=== PATIENT | female | born 1955 | race Caucasian/White ===

== ENCOUNTER 2019-05-12 15:41 | Inpatient (IN) ==
[2019-05-12] MEDS ORDERED: NS 1,000 ML IV PRN (16:12)
--- NOTE | 2019-05-12 16:27 | Diag Imaging Result Doc PS360 ---
CT HEAD W/O CONTRAST - 05/12/2019 INDICATION: R/O STROKE COMPARISON: None FINDINGS: There is mild cerebral atrophy. There is mild periventricular white matter chronic microvascular disease. There are old lacunae in the basal ganglia bilaterally. No intracranial mass or hemorrhage. The skull is intact. The sinuses are clear. IMPRESSION: Chronic ischemic changes of the brain. No acute process. This exam was performed using automated exposure control, adjustment of mA or kV according to patient size, and/or use of iterative reconstruction technique Electronically signed by Ruddy Anguiano 05/12/2019 4:25 PM
--- NOTE | 2019-05-12 16:35 | Diag Imaging Result Doc PS360 ---
CHEST-PORTABLE - 05/12/2019 INDICATION: stroke like symptoms COMPARISON: None FINDINGS: The lungs are normally expanded and clear. Heart size and mediastinal contours are normal. No pneumothorax or pleural effusion. IMPRESSION: Negative exam. Electronically signed by Ruddy Anguiano 05/12/2019 4:33 PM
[2019-05-12 16:38] LABS: BASO# 0.03 X1000 (0.0-0.2); BASO% 0.5 % (0.0-0.8); EOS# 0.09 X1000 (0.0-0.7); EOS% 1.4 % (0.0-10.0); HEMOGLOBIN 14.7 g/dL (12.0-16.0); IMM GRAN# 0.02 X1000 (0.0-0.04); IMM GRAN% 0.3 % (0.0-0.5); LYMPH# 1.35 X1000 (1.2-3.4); LYMPH% 20.8 % (20.5-51.1); MCH 29.3 PG (27-31); MCHC 32.7 g/dL (33-37); MCV 89.6 FL (81-99); MONO# 0.41 X1000 (0.11-0.59); MONO% 6.3 % (1.7-9.3); MPV 10.9 FL (7.4-10.4); NEUT# 4.58 X1000 (1.4-6.5); NEUT% 70.7 % (42.2-75.2); PLT 177 X1000 (130-400); RBC 5.02 XMIL (4.2-5.4); RDW 13.9 % (11.5-14.5); WBC 6.48 X1000 (4.8-10.8)
[2019-05-12 16:47] LABS: INR 0.97
[2019-05-12 16:48] LABS: PTT 25.4 Seconds (22.3-41.8)
[2019-05-12 16:57] LABS: AGAP 14; ALB/GLOB RATIO 1.5; ALBUMIN 4.1 g/dL (3.5-5.0); ALKALINE PHOSPHATASE 121 U/L (32-104); BUN 11 mg/dL (8-22); CALCIUM 9.2 mg/dL (8.8-10.2); CHLORIDE 103 mmol/L (98-107); COSMO 281; CREATININE 0.7 mg/dL (0.5-0.9); ESTIMATED GFR > 60; GLUCOSE 106 mg/dL (70-104); GOT 15 U/L (10-30); GPT 8 U/L (10-36); POTASSIUM 4.1 mmol/L (3.5-5.1); SODIUM 141 mmol/L (136-145); TCO2 24 mmol/L (25-35); TOTAL BILIRUBIN 0.22 mg/dL (0.20-1.00); TOTAL PROTEIN 6.8 g/dL (6.3-8.3)
[2019-05-12 17:29] LABS: URINE SOURCE CLEAN CATCH
[2019-05-12 17:35] LABS: BILIRUBIN URINE NEGATIVE (NEGATIVE); BLOOD URINE NEGATIVE (NEGATIVE); COLOR YELLOW; GLUCOSE URINE NEGATIVE (NEGATIVE); KETONE URINE NEGATIVE (NEGATIVE); LEUKOCYTES URINE NEGATIVE (NEGATIVE); NITRITE URINE NEGATIVE (NEGATIVE); PH URINE 7.5; PROTEIN URINE TRACE mg/dL (NEGATIVE); SP GRAVITY URINE 1.016; TURBIDITY URINE CLEAR (CLEAR); UROBILINOGEN URINE NORMAL (NORMAL)
[2019-05-12 17:36] LABS: UR EPITHELIAL CELLS <10 /HPF (<10); URINE BACTERIA NEGATIVE /HPF; URINE RBC <10 /HPF (<10); URINE WBC <10 /HPF (<10)
[2019-05-12 17:52] LABS: UR AMPHETAMINES QUAL PRESUMPTIVE POSITIVE (NONE DETECT); UR BARBITUATES QUAL NONE DETECTED (NONE DETECT); UR BENZODIAZEPIN QUAL NONE DETECTED (NONE DETECT); UR CANNABINOIDS QUAL NONE DETECTED (NONE DETECT); UR COCAINE QUAL NONE DETECTED (NONE DETECT); UR METHADONE QUAL NONE DETECTED (NONE DETECT); UR OPIATES QUAL NONE DETECTED (NONE DETECT); UR OXYCODONE QUAL NONE DETECTED (NONE DETECT); UR PCP QUAL NONE DETECTED (NONE DETECT)
[2019-05-12] MEDS ORDERED: ASPIRIN PO ONE (18:03)
--- NOTE | 2019-05-12 18:03 | PROVIDER DOCUMENTATION ---
This chart was entered by Allie Nolasco Scribe, acting as scribe for David Jenkins MD. HPI-Neurological Disorder - General Chief Complaint: STROKE ALERT Stated Complaint: STROKE ALERT Time Seen by Provider: 05/12/19 15:52 Source: patient, EMS ([facility]) Unable to obtain history due to:: urgency - History of Present Illness-Neuro Nature of Presenting Problem: unknown aged female presents to the ed via ems ([facility]) after found on [address] slummed over in her car. per ems when aos pt was unresponsive briefly but once she became responsive was able to speak and answer questions. while ems was speaking with the pt again she deve;oped onset of left facial droop, blurry vision, slurred speech and weakness noted to ADAN. pt was in the ed went to [place] and has been improving since coming to ed. she reports she has hx of TIA's in the past. ems reports D stick 109 and they spoke with pt sister enroute to ed. pt denies pain Severity: reports: moderate Onset/Duration: reports: 1 hour ago Timing: reports: still present, improving Context: reports: impaired speech, facial droop Character of Altered Mental Status: reports: disoriented, unresponsive Any recent trauma/injury?: reports: none Character of Deficits: reports: vision problem/glaucoma, impaired speech New weakness or altered sensation location:: reports: LUE, left facial Cognitive Baseline: alert, oriented x3 Gait Baseline: walks without assistance Associated Symptoms: reports: confusion, loss of consciousness, sleepy, slurred speech, vision changes, weakness. denies: headache, chest pain, fever/chills, numbness in legs/feet, vomiting Similar Symptoms Previously?: Yes (hx of TIA) Recently seen or treated by another doctor?: No Review of Systems - Adult - REVIEW OF SYSTEMS - ADULT ROS:: limited per condition Constitutional: denies: chills, fever Eyes: reports: see HPI, blurred vision Ears, Nose, Mouth & Throat: reports: no symptoms reported Cardiovascular: denies: chest pain, palpitations Respiratory: denies: shortness of breath, wheezing Gastrointestinal: denies: diarrhea, nausea, vomiting Genitourinary: reports: no symptoms reported Musculoskeletal: reports: see HPI, muscle weakness (LUE). denies: back pain, neck pain Integumentary: reports: no symptoms reported Neurological: reports: see HPI, slurred speech. denies: headache/migraines, seizure, tremors Psychiatric: reports: no symptoms reported Endocrine: reports: no symptoms reported Hematologic/Lymphatic: reports: no symptoms reported Allergic/Immunologic: reports: no symptoms reported All Other Systems: Reviewed and Negative Past History - Adult - PAST MEDICAL HISTORY-ADULT Review of Records: reports: Old Records Reviewed, Nursing Assessment Review, Medications Reviewed, Social history reviewed & non-contributory. Major Childhood Illnesses: reports: denies history Cardiovascular: reports: HTN Respiratory: reports: denies history Gastrointestinal: reports: denies history Obstetrical/Gynecological: reports: denies history Genitourinary: reports: denies history Musculoskeletal: reports: denies history Hand Dominance: Right Handed Neurological: reports: TIA Psychiatric: reports: anxiety Endocrine/Immune: reports: denies history Other Conditions: reports: denies history - PRIOR SURGERIES/PROCEDURES Surgical/Procedure History: reports: reviewed, not pertinent - IMMUNIZATION STATUS Childhood Immunizations: See Nurse Assessment Flu Vaccine: See Nurse Assessment - FAMILY HISTORY Family History: reviewed, not pertinent - SOCIAL HISTORY Smoking: denies Substance Use: denies Living Situation: family Physical Exam- Neurological - Physical Exam-Neuro Initial Vital Signs Reviewed: Yes General Appearance: appears well, alert, mild distress Eye Exam: bilateral eye: normal inspection, PERRL, other (unable to direct gaze to the right) HENMT: negative: moist mucous membranes (dry oral) Head Injury: no evidence of injury Neck: non-tender, full range of motion, normal inspection Respiratory: chest non-tender, lungs clear, normal breath sounds Cardiovascular: normal peripheral pulses, regular rate, rhythm Abdominal Exam: normal bowel sounds, non tender, soft Lymphatic: no adenopathy Extremity: normal capillary refill, pelvis stable customer solutions coordinator Exam: PERRL, abnormal speech, facial droop, gaze palsy Motor/Sensory: pronator drift (L), weak motor strength LUE Neurologic: aphasia, facial droop, motor weakness Integumentary: normal color, normal turgor, warm/dry Psych/Mental Status: oriented x 3 Progress - PLAN OF CARE/RESULTS Progress/Plan/Lab Results: Vital Signs - 8 hr 05/12/19 16:19 05/12/19 16:26 Temperature 97.6 F Pulse Rate 93 H Respiratory Rate 16 Blood Pressure 189/94 O2 Sat by Pulse Oximetry 100 Laboratory Results - last 24 hr 05/12/19 05/12/19 05/12/19 16:20 16:20 16:20 WBC 6.48 RBC 5.02 Hgb 14.7 Hct 45.0 MCV 89.6 MCH 29.3 MCHC 32.7 L RDW Std Deviation 13.9 Plt Count 177 MPV 10.9 H Immature Gran % (Auto) 0.3 Neut % (Auto) 70.7 Lymph % (Auto) 20.8 [place] % (Auto) 6.3 Eos % (Auto) 1.4 Baso % (Auto) 0.5 Immature Gran # (Auto) 0.02 Neut # (Auto) 4.58 Lymph # (Auto) 1.35 [place] # (Auto) 0.41 Eos # (Auto) 0.09 Baso # (Auto) 0.03 PT INR PTT (Actin FS) Sodium 141 Potassium 4.1 Chloride 103 Carbon Dioxide 24 L Anion Gap 14 BUN 11 Creatinine 0.7 Estimated GFR/1.73 m2 > 60 BUN/Creatinine Ratio 16 Glucose 106 H Calculated Osmolality 281 Calcium 9.2 Total Bilirubin 0.22 AST 15 ALT 8 L Alkaline Phosphatase 121 H Troponin T High Sens < 6 Total Protein 6.8 Albumin 4.1 Globulin 2.7 Albumin/Globulin Ratio 1.5 Urine Source Urine Color Urine Turbidity Urine pH Ur Specific [place] Urine Protein Ur Glucose (Stick) Ur Ketones (Stick) Urine Blood Urine Nitrite Urine Bilirubin Urobilinogen Dipstick Urine Leukocytes Urine WBC (Auto) Urine RBC (Auto) U Epithel Cells (Auto) Urine Bacteria (Auto) Urine Opiates Screen Ur Oxycodone Screen Ur Methadone, Qual Ur Barbiturates Screen Ur Phencyclidine Scrn Ur Amphetamines Screen U Benzodiazepines Scrn Urine Cocaine Screen U Cannabinoids Screen 05/12/19 05/12/19 05/12/19 16:20 17:03 17:03 WBC RBC Hgb Hct MCV MCH MCHC RDW Std Deviation Plt Count MPV Immature Gran % (Auto) Neut % (Auto) Lymph % (Auto) [place] % (Auto) Eos % (Auto) Baso % (Auto) Immature Gran # (Auto) Neut # (Auto) Lymph # (Auto) [place] # (Auto) Eos # (Auto) Baso # (Auto) PT 13.0 INR 0.97 PTT (Actin FS) 25.4 Sodium Potassium Chloride Carbon Dioxide Anion Gap BUN Creatinine Estimated GFR/1.73 m2 BUN/Creatinine Ratio Glucose Calculated Osmolality Calcium Total Bilirubin AST ALT Alkaline Phosphatase Troponin T High Sens Total Protein Albumin Globulin Albumin/Globulin Ratio Urine Source CLEAN CATCH Urine Color YELLOW Urine Turbidity CLEAR Urine pH 7.5 Ur Specific [place] 1.016 Urine Protein TRACE A Ur Glucose (Stick) NEGATIVE Ur Ketones (Stick) NEGATIVE Urine Blood NEGATIVE Urine Nitrite NEGATIVE Urine Bilirubin NEGATIVE Urobilinogen Dipstick NORMAL Urine Leukocytes NEGATIVE Urine WBC (Auto) <10 Urine RBC (Auto) <10 U Epithel Cells (Auto) <10 Urine Bacteria (Auto) NEGATIVE Urine Opiates Screen NONE DETECTED Ur Oxycodone Screen NONE DETECTED Ur Methadone, Qual NONE DETECTED Ur Barbiturates Screen NONE DETECTED Ur Phencyclidine Scrn NONE DETECTED Ur Amphetamines Screen PRESUMPTIVE POSITIVE A U Benzodiazepines Scrn NONE DETECTED Urine Cocaine Screen NONE DETECTED U Cannabinoids Screen NONE DETECTED Orders Category Date Time Status Cardiac Monitoring DIRECTED Care 05/12/19 16:12 Active Finger Stick Blood Sugar (ED) DIRECTED Care 05/12/19 16:12 Active Misc. NRSG Communication Order DIRECTED Care 05/12/19 16:12 Active Oxygen Therapy- ED Nursing DIRECTED Care 05/12/19 16:12 Active Saline Loc NOW Care 05/12/19 16:12 Active CHEST-PORTABLE [RAD] Stat Exams 05/12/19 16:[address] HEAD W/O CONTRAST [CT] Stat Exams 05/12/19 15:39 Completed CBC WITH ELECTRONIC DIFF [HEME] Stat Lab 05/12/19 16:20 Completed COMPREHENSIVE METABOLIC PANEL [CHEM] Stat Lab 05/12/19 16:20 Completed PROTIME WITH INR [COAG] Stat Lab 05/12/19 16:20 Completed PTT [COAG] Stat Lab 05/12/19 16:20 Completed TROPONIN T HIGH SENSITIVITY Stat Lab 05/12/19 16:20 Completed URINALYSIS W/POSS RFLX CULT [URINALYSIS] Stat Lab 05/12/19 17:03 Completed URINE DRUG SCREEN Stat Lab 05/12/19 17:03 Completed 0.9% Sodium Chloride Inj [Ns] 1,000 ml Med 05/12/19 16:12 Ordered IV 125 mls/hr EKG [EKG] Stat Ther 05/12/19 16:12 Ordered Result Diagrams: 05/12/19 16:20 05/12/19 16:20 - REASSESSMENT Reassessment #1 Time Reassessed: 16:29 Status: unchanged (dr jenkins at bedside pt is unchanged) Reassessment #2 Time Reassessed: 17:26 Status: unchanged (dr jenkins at bedside she still has left sided facial droop and cant see well out left eye) - EKG 1 Time of EKG reading by physician:: 16:34 EKG Read and Signed by:: David Jenkins EKG Interpretation (*Must complete 3 of following elements*): Abnormal Rate: 92 Rhythm: nsr QRS: other (biatrial enlargement/prolonged QT/abnormal QRS-T angle, consider primary T wave abnormality) - XRAY 1 XRAY: Bilateral XRAY Study: Chest Impression: See EMR Report (MPRESSION: Negative exam. Electronically signed by Ruddy Anguiano 05/12/2019 4:33 PM) - CT/MRI 1 CT Study: Head Impression: See EMR Report (IMPRESSION: Chronic ischemic changes of the brain. No acute process. This exam was performed using automated exposure control, adjustment of mA or kV according to patient size, and/or use of iterative reconstruction technique Electronically signed by Ruddy Anguiano 05/12/2019 4:25 PM) - CONSULTS/PCP/HOSPITALIST Notification #1 *Consult/PCP/Hospitalist*: hospitalist dr harding Time Discussed: 17:30 Reason/Comments: phone consult Consult Disposition: Will see in ED, Admit #2 Consult: transfer center Time Discussed: 17:32 (push images and want to telescreen pt for cva) Reason/Comments: phone consult #3 Consult: Dr Nuñez (Neuro) Time Discussed: 18:02 Reason/Comments: advised to keep here and no TPA Consult Disposition: Admit Departure - Departure Date of Disposition Decision: 05/12/19 Time of Disposition Decision: 18:02 DIAGNOSIS: CVA (cerebral vascular accident), HTN (hypertension) Disposition: ADMITTED INPATIENT 09 Certified Medical Emergency: Emergent Condition: Fair Referrals and Follow-Ups: None,PCP [Primary Care Provider] - - Critical Care Note This patient required my direct & personal management of CC.: Yes Total Time (mins): 35 Critical Care Statement: This patient required my direct personal management to treat or rule out processes, the absence of which, could potentiallly result in sudden, clinically significant life or limb threatening deterioration. Attestation - Physician/ ROEL Attestation Patient care was provided by Advanced Practice Provider:: No The physician spent face to face time with patient:: Yes Advanced Practice Provider documentation review:: Supervising physician onsite and consulted in the evaluation and care of this patient. The physician did have a face to face encounter with the patient. - NIH Stroke Scale NIH Type: Initial Evaluation Level of Consciousness: 0-Alert LOC Questions (ask month and age): 0-Answers Both Correctly LOC Commands (ask to open & close eyes;make a fist, let go): 0-Obeys Both Correctly Best Gaze (horizontal eye movement): 1-Partial Gaze Palsy (gaze is abnormal in one or both eyes) Visual (use finger movement, counting or visual threat): 1-Partial Hemianopia Facial Palsy (show teeth or raise eyebrows & close eyes tght: 1-Minor Paralysis Motor Function-left arm: 1-Drift Motor Function-right arm: 0-Normal Motor Function-left le-Normal Motor Function-right le-Normal Limb Ataxia([id number], or heel to colindres): 0-No Ataxia Sensory(pin prick to face,arms,trunk,legs-compare side/side): 0-No Ataxia Best Language(name item/read sentence.Ex-Down to Earth): 1-Mild to Moderate Aphasia Dysarthria(Pt read words or say words Ex.Mama,Tip-Top,Thanks: 1-Mild-Mod Slurring Words NIH Total Score: 6 This chart was documented by the indicated scribe, (Allie Nolasco Scribe) and accurately reflects the services I performed and decisions made by me, David Jenkins MD, as attested by the provider's signature.
[2019-05-12] MEDS ORDERED: TYLENOL PO PRN (19:04)
[2019-05-12] MEDS ORDERED: LABETALOL IV PRN ×2 (19:04→23:30)
[2019-05-12] MEDS ORDERED: ZOFRAN IV PRN (19:04)
--- NOTE | 2019-05-12 19:11 | HISTORY AND PHYSICAL ---
CHIEF COMPLAINT: Weakness and facial drooping. HISTORY OF PRESENT ILLNESS: This is a 63-year-old female. She does have a history of hypertension and TIA previously. She was evaluated in the ER. Around 2:30, apparently she had an episode where she felt weak and dizzy. She pulled off to the side of the road. Emergency responders came in and it was felt that she possibly had a stroke, so she was brought in because she had left facial weakness and left upper extremity weakness. She has since been evaluated by the [facility] and felt that she was not a candidate for tissue plasminogen activator, not clearly that she had a stroke. This could be a TIA and she was improving. When I saw her, she does still have a little bit of left facial droop, but I cannot really appreciate any weakness in her arms or muscles or anything to that effect on the right or left. She does not have a dysconjugate gaze, but she has difficulty moving or focusing on the right side. Mostly, that seems to be a pain issue and nothing else, and patient is otherwise stable. Workup in the ER including, head CT, is negative and again she was improving. DISPOSITION: Again, we are going to place her in Observation for possible stroke versus TIA. Her exam would suggest that this has not been a full-blown stroke. The ER physician also, Dr. Jenkins, describes that she has symptoms, but then she can get up and go to the bathroom and not have any weakness or anything focal, like her exam is kind of dynamic and possibly inconsistent. PAST MEDICAL HISTORY: 1. Hypertension. 2. Migraines. 3. Reported seizures. PAST SURGICAL HISTORY: 1. She has had breast implants. 2. She reports an inguinal hernia repair. SOCIAL HISTORY: She does smoke half a pack a day. She has done that since she was 18 years old, so probably for 40 years. She at least has a 40 pack year history of smoking. ALLERGIES: No known drug allergies. MEDICATIONS: I do not have a list compiled at this point. FAMILY HISTORY: She has a sister who has TIAs, but no other cardiovascular issues. REVIEW OF SYSTEMS: No weight loss. No chest pain, palpitations. No shortness of breath. Otherwise, negative times a 10 point review of systems. PHYSICAL EXAMINATION: VITAL SIGNS: Blood pressure 189/94, heart rate of 93, respiratory rate 16, temperature 97.6 degrees. CARDIOVASCULAR: Regular rate and rhythm. PULMONARY: Bilateral breath sounds. Clear to auscultation. GI: Soft, nontender, nondistended. Bowel sounds were positive. NEUROLOGIC: Again, I did not appreciate anything focal except for some left facial droop. GI: Soft, nontender, nondistended. Bowel sounds are positive. LABORATORY DATA: White count 6, hemoglobin and hematocrit 14 and 45, platelets of 177,000. Coagulation studies normal. Basic was normal. Urine was normal. UDS was positive for amphetamines, and I did not know that, which I will have to get that reviewed. ASSESSMENT: This is a 63-year-old female with history of hypertension (I am not sure if she is on medications for that.) who presents with atypical pattern that looks possibly like a stroke versus transient ischemic attack versus other possibilities, conversion disorder. I do not think this is Hernandez's palsy because she has frontal sparing. There is no evidence of a complete peripheral facial 7th nerve palsy because she can uncrease her brows. She just has a little bit of weakness on the left side. Other than that, patient is stable. 1. Neurologic. We will monitor her. I will go ahead and pursue an MRI, get a neurology consult, pursue transient ischemic attack workup, start aspirin, check lipids, and follow. Based on information acquired, we can get a treatment plan assembled. 2. Hypertension. This could be also simply malignant hypertension. It is possible it could be stroke too; we are not entirely sure about that, so we are going to continue to monitor closely. 3. Amphetamine use. We are going to have to review with the patient about what that is, because that certainly could cause some of these atypical feature. She denied any of that usage when I discussed it with her earlier. This is a service admission. cc: Siva Littlejohn MD
[2019-05-12] MEDS: NS 1,000 ML IV SCH (21:03)
[2019-05-13 06:20] LABS: HEMATOCRIT 39.6 % (37.0-47.0); HEMOGLOBIN 12.9 g/dL (12.0-16.0); MCH 29.7 PG (27-31); MCHC 32.6 g/dL (33-37); MPV 11.1 FL (7.4-10.4); RBC 4.35 XMIL (4.2-5.4); WBC 5.48 X1000 (4.8-10.8)
[2019-05-13 06:33] LABS: AGAP 10; ALB/GLOB RATIO 1.2; ALBUMIN 3.4 g/dL (3.5-5.0); ALKALINE PHOSPHATASE 102 U/L (32-104); BUN 10 mg/dL (8-22); CHLORIDE 103 mmol/L (98-107); COSMO 278; CREATININE 0.7 mg/dL (0.5-0.9); ESTIMATED GFR > 60; GLUCOSE 84 mg/dL (70-104); GOT 15 U/L (10-30); GPT 7 U/L (10-36); POTASSIUM 4.1 mmol/L (3.5-5.1); SODIUM 140 mmol/L (136-145); TCO2 27 mmol/L (25-35); TOTAL BILIRUBIN 0.32 mg/dL (0.20-1.00); TOTAL PROTEIN 6.2 g/dL (6.3-8.3)
[2019-05-13] MEDS: NS 1,000 ML IV SCH ×3 (07:43→22:57)
[2019-05-13] MEDS: ASPIRIN EC PO SCH ×2 (07:44→09:11)
--- NOTE | 2019-05-13 13:04 | Diag Imaging Result Doc PS360 ---
EXAM: MRI BRAIN W/WO CONTRAST INDICATION: cva COMPARISON: CT head dated 05/12/2019. No prior MRI brain is available for comparison. FINDINGS: There is a miniscule focus of restricted diffusion involving the inferior aspect of the stacey to the right of midline indicating a tiny acute lacunar infarct. No other restricted diffusion is appreciated. There are a couple of other chronic lacunar infarcts involving the stacey and there are a couple of chronic lacunar infarcts involving the basal ganglia bilaterally and the periventricular white matter on the left. There is also patchy mild to moderate white matter microangiopathy in the periventricular and subcortical white matter. There is no discrete intracranial mass, mass effect, or intracranial hemorrhage. There is no evidence of abnormal intracranial enhancement. The surrounding soft tissues and bony structures are essentially unremarkable. IMPRESSION: 1.Miniscule acute lacunar infarct involving the inferior aspect of the stacey to the right of midline. 2.Several other chronic lacunar infarcts bilaterally as detailed above. Electronically signed by Serjio Cordova 05/13/2019 1:02 PM
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
--- NOTE | 2019-05-13 14:38 | PROGRESS NOTE ---
DATE: 05/13/2019 SUBJECTIVE: Patient has no major complaints. OBJECTIVE: Vital signs: Blood pressure is 168/66, heart rate of 73, respiratory rate of 15, temperature 97.8 degrees, 98% on room air. Cardiovascular: Regular rate and rhythm. Pulmonary: Bilateral breath sounds clear to auscultation. GI: Soft, nontender, nondistended. Bowel sounds are positive. Neurologic: She still has a little bit of left facial droop, but she is much more awake and alert. LABORATORY DATA: Her LDL is elevated at a level of 152, that is her direct LDL, total is 221. She is positive for methamphetamines. PROBLEM LIST: Acute ischemic stroke. She has some left hemiparesis. Her MRI does suggest that she has a small pontine stroke. She had she does smoke. She has blood pressure and we will start Lipitor. I am waiting on her carotid and echocardiogram reports. If stable, I think we could probably get her home tomorrow pending her clinical evaluation. cc: Siva Ltitlejohn MD MTDD
--- NOTE | 2019-05-13 17:49 | ECHO REPORT ---
ORDER DATE: 05/13/2019 INTERPRETING PHYSICIAN: Dr. Matt Del Angel. REQUESTING PHYSICIAN: Siva Littlejohn MD. CLINICAL INDICATIONS: A 63-year-old female with transient ischemic attack. M-MODE MEASUREMENTS: Left ventricle end diastole: 3.4 cm. Left ventricle end systole: 2.1 cm. Posterior wall: 1.0 cm. Interventricular septum: 1.0 cm. Left atrium: 3.8 cm. Aortic root: Not well defined in this study. SUMMARY OF 2-DIMENSIONAL IMAGIN. The left ventricle function is excellent. Ejection fraction appears to be in the order of 65% to 70%. There is no wall motion abnormality noted. 2. The aortic valve shows mild degree of sclerosis of the cusps, with overall mild degree of regurgitation. 3. The mitral valve shows mild degrees of regurgitation. There is calcification of the mitral annulus. 4. The pulse wave Doppler of mitral inflow shows normal E/A ratio. 5. Tissue Doppler of septal and lateral mitral annulus averages 7 cm per second. 6. There is no evidence of diastolic dysfunction. 7. The tricuspid valve shows moderate degree of regurgitation. 8. Pulmonary pressure estimated at 35 mmHg. 9. The right-sided chambers are not enlarged. 10.The left atrium is only minimally enlarged. 11.There is no pericardial effusion, masses or thrombus. SUMMARY: The study shows: 1. Excellent left ventricular systolic function with ejection fraction probably in the order of 70%. 2. Mild degree of aortic regurgitation. 3. Mild degree of mitral regurgitation with calcification of the mitral annulus. 4. Moderate degree of tricuspid regurgitation with pulmonary pressure of 35 mmHg. 5. There is mild to moderate enlargement of left atrium. Clinical correlation is recommended. cc: MD Siva Wilson MD
[2019-05-13] MEDS ORDERED: LIPITOR PO SCH (21:00)
[2019-05-14] MEDS: NS 1,000 ML IV SCH ×3 (02:44→14:10)
[2019-05-14] MEDS: ASPIRIN EC PO SCH (09:29)
--- NOTE | 2019-05-14 18:19 | DISCHARGE SUMMARY ---
ADMISSION DATE: 05/12/2019 DISCHARGE DATE: 05/14/2019 SUBJECTIVE: The patient has no major complaints. DISCHARGE PHYSICAL EXAMINATION: Vital Signs: Blood pressure is 188/84, heart rate 74, respiratory 17, temperature 97.7. Neurologic: On the day of discharge she is fine. No right facial droop. No left facial droop. No left hemiparesis. DISCHARGE DIAGNOSIS: Acute ischemic cerebrovascular accident of the right stacey. HOSPITAL COURSE: Briefly this is a 63-year-old female who came in with some weakness on the left side and left-sided facial droop. She was admitted for treatment. Her echocardiogram was normal. No masses or thrombi. Her carotid, I believe was also normal. I do not have data there. Her brain MRI, however, showed a miniscule acute lacunar infarct, right of midline stacey. The patient was admitted for treatment. Neurology was consulted and felt that she had a small stroke. Carotid and echo were negative, and we felt her to be stable for discharge on the . DISCHARGE MEDICATIONS: Aspirin 81 daily, Lipitor 40 daily, losartan 50 daily. I advised her to stop her Adderall. She apparently takes that for narcolepsy, but I think in the setting of acute stroke that is a dangerous option. Again, I advised her on that. I am not sure if she will agree to that, but we will see how things look. cc: Siva Littlejohn MD
[2019-05-14 20:26] VITALS: BP 151/85
--- NOTE | 2019-05-17 06:53 | Carotid Study ---
DATE: 05/13/2019 REQUESTING PHYSICIAN: Dr. Littlejohn [employer]SE OPERATOR: Rose INDICATIONS: TIA versus CVA. EQUIPMENT: [employer] Vivid E9 ultrasound system with a 9 L-D transducer. FINDINGS: Complete diagram of ultrasound images to be seen scanned into the patient's medical record. The peak systolic velocities on the right side is in the mid internal carotid artery and is noted to be 123. The peak systolic velocities on the left side is noted in the distal internal carotid artery and is noted to be 84. The calculated internal carotid ratio on the right is 1.26 and left 1.1. Calculated stenosis on the right 40% to 59%, left 0 to 39%. Finally, there is some atherosclerosis more visually prominent on the right side that is producing a moderate stenosis. The left side is normal to mild. Both vertebral arteries were antegrade flow. INTERPRETATION: Moderate stenosis on the right of 40% to 59%, left normal to mild at 0 to 39%. cc: MD Siva Palencia MD
== END 2019-05-14 21:18 | disposition home or self-care (01) | DRG 66 ==
LOC: SUPCPDRO → EDBD → ED 15:41 → EDIPHOLD 18:37 → 2N 20:46
PROVIDERS: ATTEND Internal Medicine